=== PATIENT | female | born 1965 | race Caucasian/White ===

== ENCOUNTER 2023-04-10 07:04 | Emergency (ER) | payer OTHER ==
[2023-04-10] MEDS ORDERED: Sodium Chloride 0.9% 10 ML Syringe FLUSH PRN (07:19)
[2023-04-10] MEDS: Diltiazem 50 MG/10 ML SDV IVPUSH ONE (07:30)
[2023-04-10 07:44] LABS: BASOPHILS ABSOLUTE AUTO 0.1 x10^3/uL (0.0-0.2); BASOPHILS PERCENT AUTO 0.8 % (0.2-1.2); EOSINOPHILS ABSOLUTE AUTO 0.2 x10^3/uL (0.0-0.5); EOSINOPHILS PERCENT AUTO 1.9 % (0.0-4.0); HEMATOCRIT 42.2 % (33.0-47.0); HEMOGLOBIN 14.1 g/dL (12.0-16.0); IMMATURE GRAN ABSOLUTE AUTO 0.01 x10^3/uL (0.00-0.07); LYMPHOCYTES ABSOLUTE AUTO 1.8 x10^3/uL (1.0-4.8); LYMPHOCYTES PERCENT AUTO 18.7 % (25.0-50.0); MEAN CORPUSCULAR HGB CONC 33.4 g/dL (32.0-36.0); MEAN CORPUSCULAR VOLUME 92.7 fL (78.0-93.0); MONOCYTES ABSOLUTE AUTO 0.9 x10^3/uL (0.0-0.8); MONOCYTES PERCENT AUTO 8.8 % (2.0-11.0); NEUTROPHILS ABSOLUTE AUTO 6.8 x10^3/uL (1.8-7.7); NEUTROPHILS PERCENT AUTO 69.7 % (50.0-80.0); PLATELET COUNT,PLT 331 x10^3/uL (130-400); RED BLOOD CELL COUNT 4.55 x10^6/uL (4.00-5.50); WHITE BLOOD CELL COUNT,WBC 9.8 x10^3/uL (4.0-10.0)
[2023-04-10 07:54] LABS: INR 0.9 (0.9-1.1); PTT,PARTIAL THROMBOPLSTIN TIME 25.5 SEC (23.6-33.6)
[2023-04-10] MEDS: Metoprolol Tartrate 25 MG Tab PO ONE (07:57)
[2023-04-10 08:07] LABS: A/G RATIO 1.28; ALANINE AMINOTRANSFERASE,ALT 28 U/L (14-59); ALBUMIN 4.1 g/dL (3.4-5.0); ALKALINE PHOSPHATASE 68 U/L (46-116); ASPARTATE AMNIOTRANSFERASE,AST 26 U/L (15-37); BILIRUBIN TOTAL 0.4 mg/dL (0.2-1.0); BLOOD UREA NITROGEN,BUN 8 mg/dL (7-18); CALCIUM 8.8 mg/dL (8.5-10.1); CARBON DIOXIDE,CO2 24 mmol/L (21-32); CHLORIDE,CL 106 mmol/L (98-107); CREATININE 0.7 mg/dL (0.55-1.02); GLUCOSE RANDOM 143 mg/dL (70-99); MAGNESIUM 1.9 mg/dL (1.8-2.4); POTASSIUM,K 3.7 mmol/L (3.5-5.1); PROTEIN TOTAL,TP 7.3 g/dL (6.4-8.2); SODIUM,NA 144 mmol/L (136-145); TSH ULTRASENSITIVE 1.888 uIU/mL (0.358-3.74)
[2023-04-10 08:08] LABS: ANION GAP 17.7 mmol/L (5-15); C-REACTIVE PROTEIN < 0.50 mg/dL (<=0.50); ESTIMATED GFR 101 mL/min (>=60)
== END 2023-04-10 08:28 | disposition home or self-care (01) ==
LOC: VM.ED 07:04
DX: I47.10 Supraventricular tachycardia, unspecified (principal); Z79.899 Other long term (current) drug therapy
CPT/HCPCS: 80053; 83735; 84443; 84484; 85025; 85610; 85730; 86140; 93005; 96374; 99285; A9270; J3490; 93010; 99284